=== PATIENT | female | born 1965 | race Caucasian/White ===

== ENCOUNTER 2017-05-04 07:44 | Outpatient (CLI) | payer OTHER | END 2017-05-04 15:33 | disposition home or self-care (01) | LOC: TOM 07:44 | DX: K56.5 Intestinal adhesions [bands] with obstruction (postinfection) (principal) ==

== ENCOUNTER 2022-10-01 09:52 | Outpatient (CLI) | payer OTHER | END 2022-10-01 09:57 | disposition home or self-care (01) | LOC: SONOGRAMA 09:52 | PROVIDERS: ATTEND Obstetrics & Gynecology Obstetrics | DX: R10.2 Pelvic and perineal pain (principal); D25.1 Intramural leiomyoma of uterus; N95.0 Postmenopausal bleeding ==